=== PATIENT | male | born 1975 ===

== ENCOUNTER 2021-06-28 05:02 | Emergency (ER) | payer OTHER ==
--- OUTSIDE RECORDS SUMMARY | 2021-06-28 05:05 | XMS REPORT | Continuity of Care Document ---
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 code = IG%) LYMPHOCYTE % (test code = LY%) 6.8 % 14.0-32.0 L MONOCYTE % (test code = MO%) 6.1 % 4.8-9.0 N EOSINOPHIL % (test code = EO%) 2.1 % 0.3-3.7 N BASOPHIL % (test code = BA%) 0.2 % 0.0-2.0 N NUCLEATED RBC % (test code = 0.0 % 0-0 N NRBC%) NEUTROPHIL # (test code = NT#) 9.31 x10 3/uL 2.0-7.6 H IMMATURE GRANULOCYTE # (test 0.06 x10 3/uL 0.00-0.03 H code = IG#) LYMPHOCYTE # (test code = LY#) 0.75 x10 3/uL 1.0-3.8 L MONOCYTE # (test code = MO#) 0.67 x10 3/uL 0.1-0.8 N EOSINOPHIL # (test code = EO#) 0.23 x10 3/uL 0.0-0.2 H BASOPHIL # (test code = BA#) 0.02 x10 3/uL 0.0-0.2 N NUCLEATED RBC # (test code = 0.00 x10 3/uL 0.0-0.1 N NRBC#) MANUAL DIFF REQUIRED (test NO code = MDIFF) - CT ABD PELVIS W/[id number] 00:00:00 Name: ZEYNEP PARKER [facility] : 1975 Age/S: 43 / M [address] Unit #: [id number] Loc: [place] [id number] Phys: Marie Chatterjee MD Acct: [id number] Dis Date: Status: REG ER PHONE #: [phone] Exam Date: 12/19/201813 FAX #: [phone] Reason: llq abdpain, hx diverticulitis EXAMS: CPTCODE: [id number] CT ABD PELVIS W/CONT [id number] EXAM: CT Abdomen and Pelvis With Contrast EXAM DATE/TIME: 12/18/2018 11:34 PM CLINICAL HISTORY: 43 years old, male; Pain; Abdominal pain; Additional info: Llq abd pain, HX diverticulitis TECHNIQUE: Axial computed tomography images of the abdomen and pelvis with intravenous contrast. All CT scans at this facility useat least one of these dose optimization techniques: automated exposure control; mA and/or kV adjustment per patient size (includes targeted exams where dose is matched to clinical i ndication); or iterative reconstruction. Coronal and sagittal reformatted images were created and reviewed. CONTRAST: 100 ml of ISO 300 administered intravenously. COMPARISON: CT ABD PELVIS W/CONT 06/26/2018 1:41 PM FINDINGS: Lower thorax: No acute findings. ABDOMEN: Liver: Hepatic steatosis and enlargement. Gallbladder and bile ducts: Normal. No calcified stones. No ductal dilation. Pancreas: Normal. No ductal dilation. Spleen: The emboli splenomegaly. Adrenals: Normal. No mass. Kidneys and ureters: Normal. No hydronephrosis. Stomach and bowel: Status post distal colectomy with left lower quadrant colostomy. Colonic diverticula. Appendix: No evidence of appendicitis. PELVIS: Bladder: Unremarkable as visualized. Reproductive: Unremarkable as visualized. ABDOMEN and PELVIS: PAGE 1 Signed Report (CONTINUED) Name: ZEYNEP PARKER [facility] : 1975 Age/S: 43 / M [address] [place] [address] Unit #: [id number] Loc: [place] [address] Phys: Marie Chatterjee MD Acct: [id number] Dis Date: Status: REG ER PHONE #: [phone] Exam Date: 12/19/201813 FAX #: [phone] Reason: llq abd pain, hx diverticulitis EXAMS: CPT CODE: [id number] CT ABD PELVIS W/CONT [id number] <Continued> Intraperitoneal space: Normal. No free air. No significant fluid collection. Bones/joints: No acute fracture. No dislocation. Soft tissues: Unremarkable. Vasculature: Normal. No abdominal aortic aneurysm. Lymph nodes: Normal. No enlarged lymph nodes. IMPRESSION: No acute finding. at 0037 Reported and signed by: Lazaro uAstin M.D. CC: Marie Chatterjee MD Technologist:RT Keely(R) CTDI: DLP: Trnscb Date/Time: 12/19/2018 (0037) [email or web address] Orig Print D/T: S: 12/19/2018 (0038) CTDI: DLP: PAGE 2 Signed ReportCHEMISTRY 8 [id number] 23:56:00 Test Item Value Reference Range Interpretation Comments ISTAT-SODIUM (test code = NAP) MMOL/L 134-147 ISTAT-POTASSIUM (test code = KP) MMOL/L 3.4-5.0 ISTAT-CHLORIDE (test code = CLP) MMOL/L 100-108 ISTAT CARBON DIOXIDE (test code = mmol/L 21-33 N ISTAT-CO2) ISTAT CALCIUM IONIZED (test code = MG/DL 1.12-1.32 ISTAT-BENNIE) ISTAT-GLUCOSE (test code = GLUP) MG/DL 70-110 H ISTAT-BUN (test code = BUNP) MG/DL 7-18 N BEDSIDE CREATININE (test code = MG/DL 0.6-1.3 N CREATBED) GLOMERULAR FILTRATION RATE POC 131 ML/MIN (test code = GFRBED) CHEMISTRY 8 [id number] 23:56:00 Test Item Value Reference Range Interpretation Comments ISTAT-SODIUM (test 140 MMOL/L 134-147 N code = NAP) ISTAT-POTASSIUM (test 4.4 MMOL/L 3.4-5.0 N code = KP) ISTAT-CHLORIDE (test 101 MMOL/L 100-108 N Perform ed by code = CLP) certified opera tor at [facility] ISTAT CARBON DIOXIDE 23.0 mmol/L 21-33 N (test code = ISTAT-CO2) ISTAT CALCIUM IONIZED 1.14 MG/DL 1.12-1.32 N (test code = ISTAT-BENNIE) ISTAT-GLUCOSE (test 260 MG/DL 70-110 H code = GLUP) ISTAT-BUN (test code = 17 MG/DL 7-18 N BUNP) BEDSIDE CREATININE 0.7 MG/DL 0.6-1.3 N (test code = CREATBED) GLOMERULAR FILTRATION 131 ML/MIN RATE POC (test code = GFRBED) LACTIC ACID [id number] 23:55:00 Test Item Value Reference Range Interpretation Comments LACTIC ACID POC 3.8 MMOL/L 0.90-1.70 H Performed by certified (test code = LACTP) 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 [facility] Troponin [id number] 22:46:00 Test Item Value Reference Range Interpretation Comments Troponin T (test code = VILMA) <0.010 ng/mL 0.000-0.090 N Comprehensive Metabolic [id number] 22:46:00 Test Item Value Reference Range Interpretation Comments Sodium (test code = 136 mmol/L 135-145 N NA) Potassium (test 3.8 mmol/L 3.5-5.1 N code = K) Chloride (test code 98 mmol/L 98-105 N = CL) Carbon Dioxide 25 mmol/L 22-29 N (test code = CO2) Glucose (test code 203 mg/dL 70-115 H = GLU) Blood Urea Nitrogen 15 mg/dL 6-20 N (test code = BUN) Creatinine (test 0.9 mg/dL 0.7-1.2 N code = CREAT) Calcium (test code 9.4 mg/dL 8.3-10.5 N = CA) Prot Total (test 7.1 g/dL 6.4-8.3 N code = TP) Albumin (test code 4.2 g/dL 3.5-5.2 N = ALB) A/G Ratio (test 1.4 Ratio code = AGRATIO) Globulin (test code 2.9 2.9-3.1 N = GLOB) Bili Total (test 0.3 mg/dL 0.1-0.9 N code = TBIL) Alk Phos (test code 80 U/L 40-129 N = APHOS) AST (test code = 17 U/L 1-40 N AST) ALT (test code = 29 U/L 1-41 N ALT) BUN/Creatinine 16.7 Ratio (test code = BCRATIO) Anion Gap (test 13 mmol/L 7-16 N code = AGAP) Estimated GFR (test >60 eGFR (es timated code = GFR) mL/min/1.73m2 Glomerular Lj tration Rate) is an est imated value,calculate d from the patient's s jarad creatinine usin g the MDRD equation.I t is NOT the patient 's actual GFR. The eGFR provides a more clinicallyusefu l measure of kidn ey disease than se rum creatinine alone.This calculation devante es sex and race into account, if the informationis provided. If e race is not provided , and the patient isAfrican-Ameri can, multiply by 1.2 12. If sex is not prov ided, and thepatient is female, multipl y by 0.742. Results for patients <18 ye ars ofage have not been validated by e MDRD study and shoul d be interpretedwith caution.eGFR Re sult Interpretation: eGFR > or = 60 is in t he Normal RangeeGF R < 60 may mean kidney diseaseeGFR < 1 5 may mean kidney failureRange s recommended by the National Kidney Foundation,http ://nkd ep.nih.gov [id number] 22:46:00 Test Item Value Reference Range Interpretation Comments NT ProBnp (test code = PBNP) 196 pg/mL 0-124 H CK [id number] 22:46:00 Test Item Value Reference Range Interpretation Comments CK (test code = CK) 210 U/L 39-308 N CKMB (test code = CKMB) 2.2 ng/mL 0.0-4.9 N CKMB% (test code = CKMBP) 1.0 % 0.0-3.4 N CK [id number] 22:46:00 Test Item Value Reference Range Interpretation Comments CK (test code = CK) 210 U/L 39-308 N CBC with [id number] 22:41:00 Test Item Value Reference Range Interpretation Comments WBC (test code = WBC) 10.0 K/cumm 4.4-10.5 N RBC (test code = RBC) 5.19 M/cumm 4.10-5.70 N Hemoglobin (test code = HGB) 13.8 gm/dL 13.4-17.4 N Hematocrit (test code = HCT) 40.7 % 38.7-52.0 N MCV (test code = MCV) 78.5 fL 80-100 L MCH (test code = MCH) 26.7 pg 27.0-32.5 L MCHC (test code = MCHC) 34.0 g/dL 32.0-37.5 N RDW (test code = RDW) 14.2 % 11.5-14.5 N Platelet Count (test code = 246 K/cumm 140-440 N PLTCT) MPV (test code = MPV) 9.6 fL Diff Method (test code = DIFFM) Auto Neutrophil (test code = NEUT) 71.2 % 36-70 H Lymphocyte (test code = LYMPH) 19.8 % 12-44 N Monocyte (test code = MONO) 6.1 % 0-11 N Eosinophil (test code = EOS) 2.4 % 0-7 N Basophil (test code = BASO) 0.5 % 0-2 N Neutro Abs (test code = ANEUT) 7.1 K/cumm 1.6-7.4 N Lymph Abs (test code = ALYMPH) 2.0 K/cumm 0.5-4.6 N [place] Abs (test code = AMONO) 0.6 K/cumm 0.0-1.2 N Eos Abs (test code = AEOS) 0.24 K/cumm 0.00-0.74 N Baso Abs (test code = ABASO) 0.1 K/cumm 0.00-0.21 N D-Dimer, [id number] 22:40:00 Test Item Value Reference Range Interpretation Comments D-Dimer, Quant 356 ng/mL 0-500 N Please not e Change in (test code = DDQNT) unit of measure from mg/L FEU to ng/mLA cutoff of less than 500 n g/mL DD has a negative predictive value of100% fo r DVT esh532% for PE .When using D-Dimer t o help rule out DVT or PE, clinical inform ation anddisease prob ability should be considered.Elev ated D-Dimer values are not specific for thromboembolism . Prothrombin [id number] 22:40:00 Test Item Value Reference Range Interpretation Comments PT (test code = PT) 10.90 seconds 9.78-13.35 N INR (test code = INR) 0.96 Ratio 0.6-1.2 N Partial Thromboplastin [id number] 22:40:00 Test Item Value Reference Range Interpretation Comments aPTT (test code = PTT) 31.90 seconds 24.39-37.25 N XR CHEST 1 [id number] 22:03:31 CHEST X-RAY 1 VIEW Location: [id number] HISTORY: Chest painTechnique:A single frontal view of thechest was obtained.Findings:There has been prior midline sternotomy. The aortic, hilar, and cardiacoutlines are normal. The lungs are clear of infiltrates or nodules. Nopneumothorax. No pleural effusions. IMPRESSION:No acute findings. Prior midline sternotomy noted. Clinical correlationrecommended.39280&PELVIS W/[id number] 00:40:02LOCATION: [id number]: 42-year-old male presents with swelling and tenderness at theostomy in the left lower quadrant.COMMENT: After-hours service at 12:[address] imaging of this patient's abdomen and pelvis was obtained fromthe diaphragm to the pelvic floor during IV contrast injection. Coronaland sagittal soft tissue reconstructions were included.One or more of the following dose reduction techniques were used:Automated exposure control, adjustment of the mA and/or kV according thepatient size, and/or utilization of iterative reconstruction technique.DLP: 1560.7 mGy-cmCONTRAST: 100 mL of Isovue-300 nonionic contrast was injected. Serumcreatinine level was 0.7 and the estimated GFR was greater than 60 mL/m.FINDINGS:The visualized lung bases are clear. The cardiac silhouette isunremarkable.The liver, spleen, pancreas, adrenal glands, kidneys, and gallbladderare unremarkable.The upper intestinal tract of the small intestine are unremarkable. Anormal-appearing appendix is seen.A colostomy is seen in the left lower quadrant. The loop of coloninvolved in the colostomy does not appear distended and the surroundingfat does not appear inflamed. The more proximal colon exhibits mildscattered di verticulosis.The distal colon terminates in a Francisco pouch.In the pelvis the urinary bladder is unremarkable. The prostate glandand seminal vesicles are unremarkable.The vascular anatomy is unremarkable.The musculoskeletal is unremarkable.IMPRESSION:No acute findings are seen in this patient's left lower quadrant withrespect to the colostomy.No obstructive changes are seen in the colon, and the upper intestinaltract, small intestine, and appendix are unremarkable.No acute findings are seen with respect to the solid organs evaluated.[id number] 00:04:00 Test Item Value Reference Range Interpretation Comments Lipase (test code = LIP) 24 U/L 13-60 N Comprehensive Metabolic [id number] 19:58:00 Test Item Value Reference Range Interpretation Comments Sodium (test code = 132 mmol/L 135-145 L NA) Potassium (test 4.0 mmol/L 3.5-5.1 N code = K) Chloride (test code 97 mmol/L 98-105 L = CL) Carbon Dioxide 25 mmol/L 22-29 N (test code = CO2) Glucose (test code 181 mg/dL 70-115 H = GLU) Blood Urea Nitrogen 11 mg/dL 6-20 N (test code = BUN) Creatinine (test 0.7 mg/dL 0.7-1.2 N code = CREAT) Calcium (test code 9.2 mg/dL 8.3-10.5 N = CA) Prot Total (test 7.4 g/dL 6.4-8.3 N code = TP) Albumin (test code 4.0 g/dL 3.5-5.2 N = ALB) A/G Ratio (test 1.2 Ratio code = AGRATIO) Globulin (test code 3.4 2.9-3.1 H = GLOB) Bili Total (test 0.3 mg/dL 0.1-0.9 N code = TBIL) Alk Phos (test code 81 U/L 40-129 N = APHOS) AST (test code = 15 U/L 1-40 N AST) ALT (test code = 26 U/L 1-41 N ALT) BUN/Creatinine 15.7 Ratio (test code = BCRATIO) Anion Gap (test 10 mmol/L 7-16 N code = AGAP) Estimated GFR (test >60 eGFR (es timated code = GFR) mL/min/1.73m2 Glomerular Lj tration Rate) is an est imated value,calculate d from the patient's s jarad creatinine usin g the MDRD equation.I t is NOT the patient 's actual GFR. The eGFR provides a more clinicallyusefu l measure of kidn ey disease than se rum creatinine alone.This calculation devante es sex and race into account, if the informationis provided. If th e race is not provided , and the patient isAfrican-Ameri can, multiply by 1.2 12. If sex is not prov ided, and thepatient is female, multipl y by 0.742. Results for patients <18 ye ars ofage have not been validated by th e MDRD study and shoul d be interpretedwith caution.eGFR Re sult Interpretation: eGFR > or = 60 is in t he Normal RangeeGF R < 60 may mean kidney diseaseeGFR < 1 5 may mean kidney failureRange s recommended by the National Kidney Foundation,http ://nkd ep.nih.gov CBC with [id number] 19:54:00 Test Item Value Reference Range Interpretation Comments WBC (test code = WBC) 8.6 K/cumm 4.4-10.5 N RBC (test code = RBC) 5.23 M/cumm 4.10-5.70 N Hemoglobin (test code = HGB) 13.9 gm/dL 13.4-17.4 N Hematocrit (test code = HCT) 42.8 % 38.7-52.0 N MCV (test code = MCV) 81.9 fL 80-100 N MCH (test code = MCH) 26.7 pg 27.0-32.5 L MCHC (test code = MCHC) 32.6 g/dL 32.0-37.5 N RDW (test code = RDW) 14.1 % 11.5-14.5 N Platelet Count (test code = 227 K/cumm 140-440 N PLTCT) MPV (test code = MPV) 7.2 fL Diff Method (test code = DIFFM) Auto Neutrophil (test code = NEUT) 67.2 % 36-70 N Lymphocyte (test code = LYMPH) 25.3 % 12-44 N Monocyte (test code = MONO) 5.1 % 0-11 N Eosinophil (test code = EOS) 2.0 % 0-7 N Basophil (test code = BASO) 0.4 % 0-2 N Neutro Abs (test code = ANEUT) 5.8 K/cumm 1.6-7.4 N Lymph Abs (test code = ALYMPH) 2.2 K/cumm 0.5-4.6 N [place] Abs (test code = AMONO) 0.4 K/cumm 0.0-1.2 N Eos Abs (test code = AEOS) 0.18 K/cumm 0.00-0.74 N Baso Abs (test code = ABASO) 0.0 K/cumm 0.00-0.21 N
[2021-06-28 05:51] LABS: Basophils % 0.8 % (0-1.3); Lymphocytes % 19.7 % (15.3-44.8); MPV 9.1 fL (7.6-11.3); RBC Red Blood Cell Count 6.29 M/uL (4.33-5.43)
[2021-06-28 06:07] LABS: ALT/SGPT 23 U/L (12-78); AST/SGOT 28 U/L (15-37); Albumin 3.2 g/dL (3.4-5.0); Alkaline Phosphatase 65 U/L (45-117); BUN Blood Urea Nitrogen 15 mg/dL (7-18); Bicarbonate 26 mmol/L (21-32); Bilirubin Direct 0.1 mg/dL (0-0.2); Bilirubin Total 0.3 mg/dL (0.2-1.0); Glucose Level 146 mg/dL (74-106); NT PRO-BNP 421 pg/mL (<125); Potassium 3.9 mmol/L (3.5-5.1); Protein, Total 6.9 g/dL (6.4-8.2); Sodium Level 141 mmol/L (136-145)
[2021-06-28 06:14] LABS: Troponin (Emerg Dept Use Only) 1.28 ng/mL (0.0-0.045)
[2021-06-28 06:27] LABS: Protime INR 1.02
--- NOTE | 2021-06-28 06:38 | EDPHYS ---
Physician Documentation [facility] Name: Guicho Salmon Age: 46 yrs Sex: Male : 1975 Arrival Date: 06/28/2021 Time: 05:23 Bed 9 Private MD: ED Physician Cuauhtemoc Dill HPI: 06/28 06:11 This 46 yrs old Male presents to ER via Ambulatory with complaints of Chest Pain > 30 kb y/o. 06:11 The patient or guardian reports chest pain that is located primarily in the substernal kb area. Onset: last week, and became worse this morning, and became persistent this morning. The pain does not radiate. Associated signs and symptoms: Pertinent positives: nausea, shortness of breath. The chest pain is described as aching. Duration: The patient or guardian reports multiple episodes, that are intermittent, with no pattern. Modifying factors: The symptoms are alleviated by nothing. the symptoms are aggravated by nothing. Severity of pain: At its worst the pain was moderate in the emergency department the pain is unchanged. The patient has experienced similar episodes in the past, several times. The patient has not recently seen a physician. Pt reports chest pain that has been intermittent since last week, but became constant this morning. 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 Pt has had 3 MIs, CABG, multiple stents and has a pacemaker/defibrillator. Historical: - Allergies: 06: No Known Allergies; ms4 - Home Meds: 06:09 metformin 500 mg Oral tab three times a day [Active]; aspirin 325 mg Oral tab 1 tab ms4 once daily [Active]; isosorbide mononitrate 10 mg Oral tab 1 tab three times a day [Active]; clopidogrel 75 mg oral tab 1 tab once daily [Active]; - PMHx: 06:09 Diabetes mellitus; Myocardial infarction; Hypertensive disorder; Cardiac pacemaker in ms4 situ; - PSHx: 06:09 Coronary artery bypass graft; Stented artery; ms4 - Immunization history:: Adult Immunizations up to date, Client reports having NOT received the Covid vaccine. - Social history:: Smoking status: Patient reports the use of cigarette tobacco products, smokes two packs cigarettes per day. ROS: 06:08 Constitutional: Negative for fever, chills, and weight loss. kb 06:08 Cardiovascular: Positive for chest pain, Negative for edema, orthopnea, palpitations, paroxysmal nocturnal dyspnea. 06:08 All other systems are negative. 06:10 Respiratory: Positive for shortness of breath, Negative for cough, dyspnea on exertion, kb hemoptysis, orthopnea, pleurisy, sputum production, wheezing. 06:10 Abdomen/GI: Positive for nausea, Negative for abdominal pain, vomiting, diarrhea. Exam: 06:08 Constitutional: This is a well developed, well nourished patient who is awake, alert, kb and in no acute distress. Head/Face: Normocephalic, atraumatic. ENT: Moist Mucous membranes Cardiovascular: Regular rate and rhythm with a normal S1 and S2. No gallops, murmurs, or rubs. No pulse deficits. Respiratory: Respirations even and unlabored. No increased work of breathing, no retractions or nasal flaring. Abdomen/GI: Soft, non-tender. No distention Skin: Warm, dry with normal turgor. Normal color. MS/ Extremity: Pulses equal, no cyanosis. Neurovascular intact. Full, normal range of motion. Neuro: Awake and alert, GCS 15, oriented to person, place, time, and situation. Moves all extremities. Normal gait. Psych: Awake, alert, with orientation to person, place and time. Behavior, mood, and affect are within normal limits. 06:14 ECG was reviewed by the Attending Physician. Vital Signs: 06:04 BP 117 / 75; Pulse 84; Resp 18; Temp 98.2; Pulse Ox 96% ; Pain 9/10; ms4 06:09 Weight 124.74 kg; Height 5 ft. 6 in. (167.64 cm); ms4 06:49 BP 108 / 74; Pulse 76; Resp 18; Pulse Ox 98% ; Pain 6/10; ms4 06:09 Body Mass Index 44.39 (124.74 kg, 167.64 cm) ms4 MDM: 05:26 Patient medically screened. pkl 06:07 The patient was not given aspirin in the Emergency Department. Patient reports taking aspirin within the past 24 hours. Data reviewed: vital signs, nurses notes. Data interpreted: Pulse oximetry: on room air is 96 %. Interpretation: normal. 06:36 Counseling: I had a detailed discussion with the patient and/or guardian regarding: the historical points, exam findings, and any diagnostic results supporting the discharge/admit diagnosis, lab results, radiology results, the need for further work-up and treatment in the hospital. Physician consultation: Darian Killian MD was called at 06:37, regarding admission, to the telemetry unit. patient's condition, and will see patient in ED, shortly. 07:29 ED course: Nurse informed me that pt left because he did not want to have a COVID test kb done. . 06/28 05:24 Order name: Basic Metabolic Panel; Complete Time: 06:20 bb 06/28 05:24 Order name: CBC with Diff; Complete Time: 06:02 bb 06/28 05:24 Order name: LFT's; Complete Time: 06:20 bb 06/28 05:24 Order name: Magnesium; Complete Time: 06:20 bb 06/28 05:24 Order name: NT PRO-BNP; Complete Time: 06:20 bb 06/28 05:24 Order name: PT-INR; Complete Time: 06:38 bb 06/28 05:24 Order name: Troponin (emerg Dept Use Only); Complete Time: 06:20 bb 06/28 05:24 Order name: XRAY Chest (1 view) bb 06/28 05:24 Order name: EKG; Complete Time: 05:25 bb 06/28 05:24 Order name: Cardiac monitoring; Complete Time: 05:43 bb 06/28 05:24 Order name: EKG - Nurse/Tech; Complete Time: 05:43 bb 06/28 06:07 Order name: COVID-19 : Document "Date of Symptom Onset" if Symptomatic. 06/28 05:24 Order name: IV Saline Lock; Complete Time: 05:43 bb 06/28 05:24 Order name: Labs collected and sent; Complete Time: 05:43 bb 06/28 05:24 Order name: O2 Per Protocol; Complete Time: 05:43 bb 06/28 05:24 Order name: O2 Sat Monitoring; Complete Time: 05:43 bb EC:14 Rate is 92 beats/min. Rhythm is regular. QRS Orrum is Normal. NM interval is normal at kb 162 msec. QRS interval is normal at 92 msec. QT interval is normal at 328 msec. Administered Medications: 06:50 Drug: Zofran (Ondansetron) 4 mg Route: IVP; Site: right hand; ms4 06:50 Follow up: Response: No adverse reaction ms4 06:50 Drug: morphine 4 mg Route: IVP; Site: right hand; ms4 06:50 Follow up: Response: No adverse reaction ms4 Disposition: 23:11 Co-signature as Attending Physician, Cuauhtemoc Dill MD. pkl Disposition Summary: 06/28/21 07:30 Left Against Medical Advice Location: Home(06/28/21 07:30) kb Problem: new(06/28/21 07:30) kb Symptoms: are unchanged(06/28/21 07:30) kb Condition: Stable(06/28/21 07:30) kb Diagnosis - Chest pain, unspecified - NSTEMI(06/28/21 07:30) kb Followup: kb - With: Emergency Department - When: As needed - Reason: Worsening of condition Followup: kb - With: Private Physician - When: 2 - 3 days - Reason: Recheck today's complaints, Continuance of care, Re-evaluation by your physician Signatures: Dispatcher [employer] EDElicia Toro FNP-C FNP-Cuauhtemoc Guzman MD MD pkl Erica Cat, RN RN bb Kecia Hsu, RN RN ms4 Corrections: (The following items were deleted from the chart) 07:30 06:38 Inpatient Admission kb kb 07:30 06:38 Darian Killian kb kb 07:30 06:38 Telemetry/MedSurg (Inpatient) kb kb 07:30 06:38 Stable kb kb 07:30 06:38 new kb kb 07:30 06:38 are unchanged kb kb 07:30 06:38 Standard kb kb 07:30 06:38 kb kb 07:30 06:38 Chest pain, unspecified - NSTEMI kb kb
--- NOTE | 2021-06-28 06:38 | ER ---
Nurse's Notes [facility] Name: Guicho Salmon Age: 46 yrs Sex: Male : 1975 Arrival Date: 06/28/2021 Time: 05:23 Bed 9 Private MD: Diagnosis: Chest pain, unspecified-NSTEMI Presentation: 06/28 06:04 Chief complaint: Patient states: patient presents to the ED c/o right sided chest pain ms4 that radiates to his right shoulder. onset last night. 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 patient states the pain is constant in nature. patient has extensive cardiac hx and recently underwent a stress test last week. Coronavirus screen: Client denies travel out of the [place] in the last 14 days. At this time, the client does not indicate any symptoms associated with coronavirus-19. Ebola Screen: Patient negative for fever greater than or equal to 101.5 degrees Fahrenheit, and additional compatible Ebola Virus Disease symptoms Patient denies exposure to infectious person. Patient denies travel to an Ebola-affected area in the 21 days before illness onset. No symptoms or risks identified at this time. Initial Sepsis Screen: Does the patient meet any 2 criteria? No. Patient's initial sepsis screen is negative. Does the patient have a suspected source of infection? No. Patient's initial sepsis screen is negative. Risk Assessment: Do you want to hurt yourself or someone else? Patient reports no desire to harm self or others. Onset of symptoms was June 27, 2021. 06:04 Method Of Arrival: Ambulatory ms4 06:04 Acuity: [place] 2 ms4 Triage Assessment: 06:12 General: Appears in no apparent distress. Behavior is calm, cooperative. Pain: ms4 Complains of pain in chest. Cardiovascular: Reports chest pain, shortness of breath. Historical: - Allergies: 06:09 No Known Allergies; ms4 - Home Meds: 06:09 metformin 500 mg Oral tab three times a day [Active]; aspirin 325 mg Oral tab 1 tab ms4 once daily [Active]; isosorbide mononitrate 10 mg Oral tab 1 tab three times a day [Active]; clopidogrel 75 mg oral tab 1 tab once daily [Active]; - PMHx: 06:09 Diabetes mellitus; Myocardial infarction; Hypertensive disorder; Cardiac pacemaker in ms4 situ; - PSHx: 06:09 Coronary artery bypass graft; Stented artery; ms4 - Immunization history:: Adult Immunizations up to date, Client reports having NOT received the Covid vaccine. - Social history:: Smoking status: Patient reports the use of cigarette tobacco products, smokes two packs cigarettes per day. Screenin:15 Abuse screen: Denies threats or abuse. Denies injuries from another. Nutritional ms4 screening: No deficits noted. Tuberculosis screening: No symptoms or risk factors identified. Fall Risk None identified. Assessment: 06:14 Also complains of shortness of breath. Pain: Complains of pain in chest RIGHT SIDE Pain ms4 radiates to right arm Pain began 1 day ago. Neuro: No deficits noted. Cardiovascular: Reports chest pain, Heart tones S1 S2 Rhythm is regular. Respiratory: No deficits noted. 07:25 Reassessment: Pt refused COVID-19 swab needed for room placement (Covid vs non-covid aa5 unit), pt upset and states "take this IV out now, I am leaving". Attempted to calm pt down and offered to call bathhouse keeper to plan room assignment without need for COVID swab, pt refused. Explained to patient leaving is against medical advice, pt verbalizes understanding. Pt remains upset, pacing in room and states "I am leaving, I'll go to my doctor that has a brain". . Vital Signs: 06:04 BP 117 / 75; Pulse 84; Resp 18; Temp 98.2; Pulse Ox 96% ; Pain 9/10; ms4 06:09 Weight 124.74 kg; Height 5 ft. 6 in. (167.64 cm); ms4 06:49 BP 108 / 74; Pulse 76; Resp 18; Pulse Ox 98% ; Pain 6/10; ms4 06:09 Body Mass Index 44.39 (124.74 kg, 167.64 cm) ms4 ED Course: 05:23 Patient arrived in ED. bb 05:26 Cuauhtemoc Dill MD is Attending Physician. pkl 06:01 Elicia Silva FNP-C is PHCP. kb 06:01 Cuauhtemoc Dill MD is Attending Physician. kb 06:06 Triage completed. ms4 06:09 XRAY Chest (1 view) In Process Unspecified. EDMS 06:14 Arm band placed on right wrist. EKG completed in triage. Results shown to MD. ms4 06:15 No provider procedures requiring assistance completed. Inserted saline lock: 20 gauge ms4 in right hand, using aseptic technique. Blood collected. 06:38 Darian Killian MD is Hospitalizing Provider. kb 07:25 IV discontinued, intact, bleeding controlled, No redness/swelling at site. Pressure aa5 dressing applied. Administered Medications: 06:50 Drug: Zofran (Ondansetron) 4 mg Route: IVP; Site: right hand; ms4 06:50 Follow up: Response: No adverse reaction ms4 06:50 Drug: morphine 4 mg Route: IVP; Site: right hand; ms4 06:50 Follow up: Response: No adverse reaction ms4 Outcome: 06:38 Decision to Hospitalize by Provider. kb 07:25 Patient left the ED. aa5 07:25 AMA Left before signing form. aa5 07:25 Condition: stable 07:25 Discharge instructions given to N/A Signatures: Dispatcher [employer] EDMS Elicia Silva, CORE RESCUER-C CORE RESCUER-CkCuauhtemoc Nice MD MD pkl Ballard, Brenda, RN RN Renate Castillo, RN RN aa5 Kecia Hsu, RN RN ms4 Corrections: (The following items were deleted from the chart) 07:33 07:33 Patient left the ED. aa5 aa5 19:22 07:25 Reassessment: Pt refused COVID-19 swab needed for room placement (Covid vs aa5 non-covid unit), pt upset and states "take this IV out now, I am leaving". Attempted to calm pt down and offered to call bathhouse keeper to plan room assignment without need for COVID swab, pt refused. Pt remains upset, pacing in room and states "I am leaving, I'll go to my doctor that has a brain". . aa5
[2021-06-28] MEDS ORDERED: ONDANSETRON 4 MG/2 ML VIAL ONE (06:56)
[2021-06-28] MEDS ORDERED: MORPHINE 4 MG/ML SYR ONE (06:56)
--- NOTE | 2021-06-28 07:39 | RAD REPORT ---
EXAM DESCRIPTION: RAD - Chest Single View - 06/28/2021 6:09 am CLINICAL HISTORY: CHEST PAIN COMPARISON: No comparisons FINDINGS: No evidence of edema or pneumonia. Cardiomegaly. Sternotomy. Pacemaker.No acute osseous ab normality. No significant pleural effusions or pneumothorax. IMPRESSION: No acute cardiopulmonary disease.
[2021-06-28 07:40] VITALS: TEMP 98.2
[2021-06-28 07:44] VITALS: BP 108/74; O2SAT 98
== END 2021-06-28 07:33 | disposition left against medical advice (07) ==
LOC: ER 05:02
DX: I21.4 Non-ST elevation (NSTEMI) myocardial infarction (principal); I10 Essential (primary) hypertension; E11.9 Type 2 diabetes mellitus without complications; F17.210 Nicotine dependence, cigarettes, uncomplicated; Z95.0 Presence of cardiac pacemaker; Z95.1 Presence of aortocoronary bypass graft; Z79.82 Long term (current) use of aspirin
CPT/HCPCS: 93005; 85025; 80048; 36415; 83735; 85610; 80076; 84484; 83880; 71045; 96375; 96374; 99284; J2405